=== PATIENT | male | born 1970 | race Caucasian/White ===

== ENCOUNTER 2019-06-26 09:25 | Emergency (ER) | payer SELFPAY ==
[2019-06-26] MEDS ORDERED: amLODIPine 10 MG Tab PO ONE (10:45)
--- NOTE | 2019-06-26 10:46 | EDM.PDOC ---
ED HPI GENERAL MEDICAL PROBLEM - General Chief Complaint: Cardiovascular Problem Stated Complaint: RACING HEART X 1 WEEK Time Seen by Provider: 06/26/19 10:30 Source of Information: Reports: Patient History Limitations: Reports: No Limitations - History of Present Illness INITIAL COMMENTS - FREE TEXT/NARRATIVE: 49-year-old male presents to the ED with a 10 day history of feeling his heart is palpitating or racing in his chest. This at rest and at work. Perhaps makes him quite dizzy at times but he wasn't aware of feeling shortness of breath or development of any central chest pain or weakness in his extremities. While in the ED he has shown no signs of any arrhythmias and he remains in sinus rhythm. Only other complaint is perhaps some blurred vision in his right eye intermittently. Headaches no vertigo symptoms. She'll vital signs show a markedly elevated blood pressure 155/114. Onset: Sudden Onset Date: 06/16/19 Duration: Day(s):, Intermittent (Palpitations and racing heart for the last 10 days on intermittent basis.) Location: Reports: Chest (As his heart racing and skipping at times with associated dizziness and lightheadedness. No chest pain or weakness or shortness of breath) Quality: Reports: Other Severity: Moderate (Durations and racing heart) Improves with: Reports: None Worsens with: Reports: None Context: Denies: Activity, Exercise, Lifting, Sick Contact, Trauma, Other Associated Symptoms: Reports: Cough, Weakness. 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 06/26/19 [Rx] Spironolactone [Aldactone] 25 mg PO BID #14 tab 06/26/19 [Rx] Past Medical History HEENT History: Reports: None Cardiovascular History: Reports: None Respiratory History: Reports: None Gastrointestinal History: Reports: None Genitourinary History: Reports: None Musculoskeletal History: Reports: Other (See Below) Other Musculoskeletal History: broke left arm Neurological History: Reports: None Psychiatric History: Reports: None Endocrine/Metabolic History: Reports: None Hematologic History: Reports: None Immunologic History: Reports: None Oncologic (Cancer) History: Reports: None Dermatologic History: Reports: Psoriasis Other Dermatologic History: Psoriasis on scalp Social & Family History - Tobacco Use Smoking Status *Q: Current Every Day Smoker Tobacco Use Within Last Twelve Months: Cigarettes (Pack per day) Years of Tobacco use: 32 Packs/Tins Daily: 1.5 - Caffeine Use Caffeine Use: Reports: Coffee, Soda Caffeine Use Comment: 2 cups every morning - Alcohol Use Days Per Week of Alcohol Use: 6 Number of Drinks Per Day: 5 Total Drinks Per Week: 30 Date of Last Drink: 06/24/19 - Recreational Drug Use Recreational Drug Use: No ED ROS GENERAL - Review of Systems Review Of Systems: See Below Constitutional: Denies: Fever, Chills, Malaise, Weakness, Fatigue, Decreased Appetite, Weight Loss HEENT: Reports: Other Respiratory: Denies: Shortness of Breath (Perhaps intermittent blurred vision in his right eye.), Wheezing, Pleuritic Chest Pain Cardiovascular: Reports: Blood Pressure Problem, Palpitations. 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 Denies: Anxiety Hematologic/Lymphatic: Reports: No Symptoms (Dizziness or lightheadedness like he might pass out so she with the palpitations racing heart at times.) Immunologic: Denies: No Symptoms ED EXAM, GENERAL - Physical Exam Exam: See Below Exam Limited By: No Limitations General Appearance: Alert, WD/WN, No Apparent Distress, Other (Temperature 36.6 heart rate is 76 and sinus respiratory to be 18 with sats of 100%. BP is elevated 155/114 and will he will be monitored closely.) Eye Exam: Bilateral Eye: A-V [place] (I'll bilaterally on funduscopy.), Normal Inspection, PERRL Head: Atraumatic, Normocephalic Neck: Normal Inspection, Supple, Non-Tender, Full Range of Motion. No: Lymphadenopathy (L), Lymphadenopathy (R) Respiratory/Chest: No Respiratory Distress, Lungs Clear, Normal Breath Sounds, No Accessory Muscle Use, Chest Non-Tender Cardiovascular: Normal Peripheral Pulses, Regular Rate, Rhythm, No Edema, No Gallop, No Murmur, No Rub Peripheral Pulses: 3+: Posterior Tibial (L), Posterior Tibial (R), Dorsalis Pedis (L), Dorsalis Pedis (R) GI/Abdominal: Normal Bowel Sounds, Soft, Non-Tender, No Organomegaly, No Abnormal Bruit, No Mass, Pelvis Stable, Other (Previous appendectomy) Back Exam: Normal Inspection, Full Range of Motion. No: CVA Tenderness (L), CVA Tenderness (R) Extremities: Normal Inspection, Normal Range of Motion, Non-Tender, No Pedal Edema Neurological: Alert, Oriented, CN II-XII Intact, Normal Cognition, Normal Gait Psychiatric: Normal Affect, Normal Mood Skin Exam: Warm, Dry, Intact, Normal Color, No Rash EKG INTERPRETATION EKG Date: 06/26/19 Time: 10:50 Rhythm: NSR Rate (Beats/Min): 72 [place]: LAD-Left [place] Deviation (-71 left anterior fascicular block pattern) P-Wave: Present (With first-degree AV block borderline.) QRS: Other (Near Q waves in leads 3 and aVF consider old inferior wall myocardial infarction) ST-T: Other (T-wave flattening aVL) QT: Normal EKG Interpretation Comments: Abnormal ECG Course - Vital Signs Last Recorded V/S: Last Vital Signs Temp 36.6 C 06/26/19 09:40 Pulse 76 06/26/19 09:40 Resp 18 06/26/19 09:40 BP 131/100 H 06/26/19 12:06 Pulse Ox 100 06/26/19 09:40 - Orders/Labs/Meds Orders: Active Orders 24 hr Category Date Time Status EKG Documentation Completion [RC] STAT Care 06/26/19 10:43 Inactive EKG Documentation Completion [RC] STAT Care 06/26/19 10:45 Active ALDOSTERONE [REF] Stat Lab 06/26/19 09:44 Received ALDOSTERONE/RENIN RATIO [REF] Stat Lab 06/26/19 12:31 Received RENIN ACTIVITY, PLASMA [REF] Stat Lab 06/26/19 09:44 Received Dextrose 5%-0.9% NaCl [Dextrose 5%-Normal Saline] 1,000 Med 06/26/19 11:45 Active ml IV ASDIRECTED Medication Orders Dextrose/Sodium Chloride (Dextrose 5%-Normal Saline) 1,000 mls @ 150 mls/hr IV ASDIRECTED WANDA Last Admin: 06/26/19 12:04 Dose: 150 mls/hr Labs: Laboratory Tests 06/26/19 06/26/19 Range/Units 09:44 09:44 WBC 7.54 (4.23-9.07) K/mm3 RBC 5.41 (4.63-6.08) M/mm3 Hgb 16.8 (13.7-17.5) gm/dl Hct 48.3 (40.1-51.0) % MCV 89.3 (79.0-92.2) fl MCH 31.1 (25.7-32.2) pg MCHC 34.8 (32.2-35.5) g/dl RDW Std Deviation 45.1 H (35.1-43.9) fL Plt Count 185 (163-337) K/mm3 MPV 11.1 (9.4-12.3) fl Neut % (Auto) 57.8 (34.0-67.9) % Lymph % (Auto) 26.9 (21.8-53.1) % [place] % (Auto) 10.6 (5.3-12.2) % Eos % (Auto) 4.1 (0.8-7.0) Baso % (Auto) 0.3 (0.1-1.2) % Neut # (Auto) 4.36 (1.78-5.38) K/mm3 Lymph # (Auto) 2.03 (1.32-3.57) K/mm3 [place] # (Auto) 0.80 (0.30-0.82) K/mm3 Eos # (Auto) 0.31 (0.04-0.54) K/mm3 Baso # (Auto) 0.02 (0.01-0.08) K/mm3 Sodium 146 H (136-145) mEq/L Potassium 2.5 L (3.5-5.1) mEq/L Chloride 114 H (98-107) mEq/L Carbon Dioxide 22 (21-32) mEq/L Anion Gap 12.5 (5-15) BUN 12 (7-18) mg/dL Creatinine 0.6 L (0.7-1.3) mg/dL Est Cr Clr Drug Dosing 160.36 mL/min Estimated GFR (MDRD) > 60 (>60) mL/min BUN/Creatinine Ratio 20.0 H (14-18) Glucose 68 L (74-106) mg/dL Calcium 6.2 L (8.5-10.1) mg/dL Magnesium 1.3 L (1.8-2.4) mg/dl Total Bilirubin 0.6 (0.2-1.0) mg/dL AST 15 (15-37) U/L ALT 24 (16-63) U/L Alkaline Phosphatase 73 (46-116) U/L Troponin I < 0.017 (0.00-0.056) ng/mL C-Reactive Protein < 0.2 (<1.0) mg/dL Total Protein 4.8 L (6.4-8.2) g/dl Albumin 2.6 L (3.4-5.0) g/dl Globulin 2.2 gm/dL Albumin/Globulin Ratio 1.2 (1-2) TSH 3rd Generation 5.105 H (0.358-3.74) uIU/mL Meds: Medications Generic Name Dose Route Start Last Admin Trade Name Freq PRN Reason Stop Dose Admin Dextrose/Sodium Chloride 1,000 mls @ 150 mls/hr 06/26/19 11:45 06/26/19 12:04 Dextrose 5%-Normal Saline IV 150 mls/hr ASDIRECTED WANDA Administration Discontinued Medications Generic Name Dose Route Start Last Admin Trade Name Freq PRN Reason Stop Dose Admin Amlodipine Besylate 10 mg 06/26/19 10:45 06/26/19 10:54 Norvasc PO 06/26/19 10:46 10 mg ONETIME ONE Administration Enalaprilat 1.25 mg 06/26/19 11:32 06/26/19 12:06 Vasotec Iv IVPUSH 06/26/19 11:33 1.25 mg ONETIME ONE Administration Potassium Chloride 10 meq/ 100 mls @ 100 mls/hr 06/26/19 11:30 06/26/19 13:09 Premix IV 06/26/19 13:29 100 mls/hr Q1H WANDA Administration Sodium Chloride 1,000 mls @ 150 mls/hr 06/26/19 11:30 Normal Saline IV ASDIRECTED WANDA Magnesium Sulfate 2 gm/ Premix 50 mls @ 25 mls/hr 06/26/19 11:38 06/26/19 12: 03 IV 06/26/19 13:37 25 mls/hr ONETIME ONE Administration Potassium Chloride 40 meq 06/26/19 11:31 06/26/19 12:05 Klor-Con M20 PO 06/26/19 11:32 40 meq ONETIME ONE Administration - Radiology Interpretation Free Text/Narrative:: 49-year-old male attends the ED with recurrent feeling of his heart racing and fluttering for the better part of a week or more. It can happen at rest or at work. He knows of more rest. In the ED he has shown no signs of any arrhythmias. His heart rate has remained anywhere between 60 and 98/m. 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 Is also told that his potassium was likely low about 8 months ago. Plan ECG. Chest x-ray. Routine labs to be collected. - Re-Assessments/Exams Free Text/Narrative Re-Assessment/Exam: 06/26/19 11:34 Labs reveal a normal white count at 7.54. Auto differential shows 58% neutrophils. Hemoglobin is 16.8 with hematocrit of 48.3 suggesting mild hemoconcentration. Platelet count 185,000. Sodium is 146 with a potassium reported at 2.5. Chloride 114 with a bicarbonate of 22. And a gap is 12.5. BUN is 12 with a creatinine of 0.6 GFR is greater than 60. Glucose is on the low side at 68. Calcium is also low at 6.2. Magnesium is low at 1.3. Liver function is normal. C-reactive protein is less than 0.2 total protein is 4.8 albumin fraction is low at 2.6. Chest x-ray reveals mildly hyperinflated lung avila and perhaps some mild scar tissue right lung base. Both pulmonary arteries are mildly prominent. Cardiac silhouette is normal. Plan patient will have an IV started with D5 normal saline at 150 mils per hour. He will receive 2K riders each with 10 mEq of potassium IV and 40 milk or evidence of potassium by mouth. He will also be given dinner to increase his serum calcium level. Will also be given 2 g of magnesium sulfate while in the ED. He will also be given Vasotec 1.25 mg IV for blood pressure control. Should is normal. Portable chest x-ray was within normal limits. 06/26/19 12:57 Blood pressure is improved nicely to 132/98. Therefore appears to be responding to Renin suppression. We'll be discharging him home on 20 mg of lisinopril once daily and Aldactone 5 mg twice a day. He will need repeat labs within the next 5-7 days to check on his serum potassium values. We'll not send him home on the potassium orally at this time but magnesium in the form of Slow-Mag twice daily until recheck in a week. Departure - Departure Time of Disposition: 14:01 Disposition: Home, Self-Care 01 Reason for Transfer *Q: Other Condition: Fair Clinical Impression: Rapid palpitations, Hypokalemia due to excessive renal loss of potassium, Hypomagnesemia, Hypocalcemia, Uncontrolled hypertension Prescriptions: Lisinopril [Zestril] 20 mg PO DAILY #30 tablet Magnesium Chloride [Slow-Mag] 71.5 mg PO BID #14 tablet. Spironolactone [Aldactone] 25 mg PO BID #14 tab Referrals: PCP,None [Primary Care Provider] - Forms: ED Department Discharge Additional Instructions: Evaluation the emergency room today in regards to palpitations and feeling of rapid racing heart off and on for the last 10 days. Of course while you were here the heart behaved or Saturday next week and blood pressure check up in clinic. They will also have to check on your kidney function. I have set up an appointment for you to see Dr. Kalpana Acosta on Saturday next week at their 15:15 hrs. in the afternoon. Should show up about 15 minutes early to complete paperwork. Ideally if he slipping into the hospital on next week and have labs done that will speed up the appointment . Her office is on the east side of the Hospital third floor. Sepsis Event Note - Evaluation Sepsis Screening Result: No Definite Risk - Focused Exam Vital Signs: Vital Signs Temp Pulse Resp BP BP Pulse Ox 06/26/19 12:06 131/100 H 06/26/19 10:54 143/108 H 06/26/19 09:40 36.6 C 76 18 155/114 H 100 Date Exam was Performed: 06/26/19 Time Exam was Performed: 15:03 - My Orders Last 24 Hours: My Active Orders 06/26/19 09:44 ALDOSTERONE [REF] Stat RENIN ACTIVITY, PLASMA [REF] Stat 06/26/19 10:43 EKG Documentation Completion [RC] STAT 06/26/19 10:45 EKG Documentation Completion [RC] STAT 06/26/19 11:45 Dextrose 5%-0.9% NaCl [Dextrose 5%-Normal Saline] 1,000 ml IV ASDIRECTED 06/26/19 12:31 ALDOSTERONE/RENIN RATIO [REF] Stat - Assessment/Plan Last 24 Hours: My Active Orders 06/26/19 09:44 ALDOSTERONE [REF] Stat RENIN ACTIVITY, PLASMA [REF] Stat 06/26/19 10:43 EKG Documentation Completion [RC] STAT 06/26/19 10:45 EKG Documentation Completion [RC] STAT 06/26/19 11:45 Dextrose 5%-0.9% NaCl [Dextrose 5%-Normal Saline] 1,000 ml IV ASDIRECTED 06/26/19 12:31 ALDOSTERONE/RENIN RATIO [REF] Stat
[2019-06-26] MEDS ORDERED: Sodium Chloride 0.9% 1,000 ML IV SCH (11:30)
[2019-06-26] MEDS ORDERED: Potassium Chloride 20 MEQ Tab.ER PO ONE (11:31)
[2019-06-26] MEDS ORDERED: Enalaprilat 1.25 MG/ML SDV IVPUSH ONE (11:32)
[2019-06-26] MEDS ORDERED: Magnesium Sulfate/Water 2 GM in Premix Bag 1 BAG IV ONE (11:38)
[2019-06-26] MEDS ORDERED: Dextrose 5%-0.9% NaCl 1,000 ML IV SCH (11:45)
--- NOTE | 2019-06-26 11:52 | CR ---
Chest: Portable view of the chest was obtained. Comparison: No prior chest x-ray. Heart size and mediastinum are normal. Lungs are clear. Bony structures are grossly intact. Impression: 1. Nothing acute is seen on portable chest x-ray. Diagnostic code #1 This report was dictated in [place] Standard Time
[2019-06-26] MEDS: Potassium Chloride 10 MEQ in Premix Bag 1 BAG IV SCH ×2 (12:04→13:09)
== END 2019-06-26 15:28 | disposition home or self-care (01) ==
LOC: JD.ED 09:25
DX: E87.6 Hypokalemia (principal); E83.42 Hypomagnesemia; E83.51 Hypocalcemia; I10 Essential (primary) hypertension; F17.210 Nicotine dependence, cigarettes, uncomplicated; Z79.899 Other long term (current) drug therapy
CPT/HCPCS: 36415; 71045; 80053; 82088; 83735; 84244; 84443; 84484; 85025; 86140; 93005; 96361; 96365; 96366; 96368; 96375; 99285; A9270; J3475; J3480; J7042; 93010